=== PATIENT | male | born 1995 | race Caucasian/White ===

== ENCOUNTER 2017-03-01 00:09 | Emergency (ER) | payer BC ==
[~2017-03-01] VITALS: Ht 170.2 cm; Wt 71.9 kg
[2017-03-01 00:10] VITALS: BP 133/93
[2017-03-01] MEDS ORDERED: MECLIZINE CHEWABLE 25 MG TAB ONE (00:57)
[2017-03-01] MEDS ORDERED: SODIUM CHLORIDE 0.9% 1,000ML IVBOLUS ONE (01:00)
[2017-03-01] MEDS ORDERED: MECLIZINE CHEWABLE 25 MG TAB PO ONE (01:00)
[2017-03-01] MEDS ORDERED: SODIUM CHLORIDE FLUSH 10ML SYR IVF ONE (01:00)
[2017-03-01 01:11] LABS: BLOOD UREA NITROGEN 19 mg/dL (7-18)
== END 2017-03-01 02:22 | disposition home or self-care (01) ==
LOC: ED 02:06
DX: R00.2 Palpitations (principal); R42 Dizziness and giddiness
CPT/HCPCS: 36415; 70450; 80048; 82040; 83735; 85025; 93005; 96360; 99285; J7030

== ENCOUNTER 2017-03-07 06:43 | Emergency (ER) | payer BC ==
[~2017-03-07] VITALS: Ht 170.2 cm; Wt 70.0 kg
[2017-03-07] MEDS ORDERED: SERT25TA3 PO (07:13)
[2017-03-07] MEDS ORDERED: ALPR0.254 PO (07:14)
[2017-03-07] MEDS ORDERED: PROP10TA PO (07:14)
[2017-03-07] MEDS ORDERED: MECL25TA4 PO (07:15)
[2017-03-07] MEDS ORDERED: ASPI-496 PO (07:26)
[2017-03-07] MEDS ORDERED: SODIUM CHLORIDE 0.9% 1,000ML IVBOLUS ONE (07:30)
[2017-03-07] MEDS ORDERED: FAMOTIDINE 20 MG/2 ML IVP ONE (07:30)
[2017-03-07] MEDS ORDERED: LORATADINE/PSE 5/120MG TAB.ER.12H PO ONE (07:30)
[2017-03-07] MEDS ORDERED: SODIUM CHLORIDE FLUSH 10ML SYR IVF ONE (07:30)
[2017-03-07] MEDS ORDERED: MAALOX/HYOSCYAMINE/LIDOCAINE 45 ML BOTTLE PO ONE (08:00)
[2017-03-07] MEDS ORDERED: LORazepam 2 MG/ML, 1ML IVPush ONE (08:00)
[2017-03-07] MEDS ORDERED: ONDANSETRON 2MG/ML, 2ML IVPush ONE (08:00)
[2017-03-07] MEDS ORDERED: FAMOTIDINE 20 MG/2 ML ONE (08:05)
[2017-03-07] MEDS ORDERED: ONDANSETRON 2MG/ML, 2ML ONE (08:05)
[2017-03-07] MEDS ORDERED: MAALOX/HYOSCYAMINE/LIDOCAINE 45 ML BOTTLE ONE (08:05)
[2017-03-07] MEDS ORDERED: LORazepam 2 MG/ML, 1ML ONE (08:06)
[2017-03-07 08:29] LABS: ASPARTATE AMINO TRANSFERASE 24 U/L (15-37); BLOOD UREA NITROGEN 16 mg/dL (7-18)
[2017-03-07 10:00] VITALS: BP 148/80
== END 2017-03-07 10:23 | disposition home or self-care (01) ==
LOC: ED 08:40
DX: F41.1 Generalized anxiety disorder (principal); R10.84 Generalized abdominal pain; H69.81 Other specified disorders of Eustachian tube, right ear
CPT/HCPCS: 36415; 74022; 80053; 81003; 83690; 85025; 96361; 96374; 96375; 99285; J2060; J2405; J7030; S0028